=== PATIENT | female | born 1960 | race Caucasian/White ===

== ENCOUNTER 2019-05-15 21:31 | Emergency (ER) | payer OTHER ==
--- NOTE | 2019-05-15 21:40 | UC ---
"General HPI - HPI Summary HPI Summary: Patient presents to urgent care for evaluation of a wound on her right heel. Patient states that Monday evening she slipped and fell at home. Patient states she bruised her left hip and had some discomfort to her right heel. Patient states she has progressively developed a blister in this area and was concerned because it became red tonight. Patient has oxycodone that she takes at home for back pain and has been taking it. Patient denies striking her head loss of consciousness. Patient does have a history of diabetes type 2. Patient does not routinely check her sugars. Patient denies any knee pain or hip pain. Patient states she is limping because of pain in the right heel. Patient's medications as noted in the EMR by triage was reviewed. - History of Current Complaint Stated Complaint: S/P FALL, RIGHT FOOT COMPLAINT Hx Obtained From: Patient, Other: - I guilherme Garg | Reference #: [id number] Onset/Duration: Gradual Onset Onset Severity: Mild Current Severity: Mild - Allergy/Home Medications Allergies/Adverse Reactions: Allergies Allergy/AdvReac Type Severity Reaction Status Date / Time haloperidol [From Haldol] Allergy See Comment Verified 05/15/19 22:05 Home Medications: Home Medications Ascorbic Acid TAB* [Vitamin C TAB*] 500 mg PO DAILY 05/15/19 [History Confirmed 05/15/19] Docosanol 10%* [Abreva 10%*] 1 applic DAILY 05/15/19 [History Confirmed 05/15/19 ] Fenofibrate [Tricor 160 MG] 160 mg PO DAILY 05/15/19 [History Confirmed 05/15/19 ] Folic Acid TAB* [Folvite TAB*] 1 mg PO DAILY 05/15/19 [History Confirmed ] LORazepam TAB(*) [Ativan 0.5 MG TAB (*)] 0.5 mg PO QID PRN 05/15/19 [History Confirmed 05/15/19] Lactose-Reduced Food [Ensure Liquid] 1 liq PO DAILY 05/15/19 [History Confirmed 05/15/19] Metformin ER (NF) 500 mg PO BID 05/15/19 [History Confirmed 05/15/19] Pantoprazole TAB * [Protonix TAB*] 40 mg PO DAILY 05/15/19 [History Confirmed ] Proctosol 1 applic DAILY 05/15/19 [History Confirmed 05/15/19] QUEtiapine TAB* [Seroquel 300 MG TAB*] 2 tab PO BEDTIME 05/15/19 [History Confirmed 05/15/19] Ramipril CAP* [Altace CAP*] 2.5 mg PO DAILY 05/15/19 [History Confirmed 05/15/19 ] Simvastatin 20 mg PO DAILY 05/15/19 [History Confirmed 05/15/19] Zolpidem TAB* [Ambien TAB*] 5 mg PO BEDTIME PRN 05/15/19 [History Confirmed ] amLODIPine TAB* [Norvasc 5 mg TAB*] 1 tab DAILY 05/15/19 [History Confirmed ] buPROPion SR TAB* [Wellbutrin SR TAB*] 150 mg PO BID 05/15/19 [History Confirmed 05/15/19] hydrOXYzine HCL TAB* [Atarax TAB 50 MG *] 50 mg PO TID PRN 05/15/19 [History Confirmed 05/15/19] oxyCODONE TAB* [Roxycodone TAB 5 mg*] 5 mg PO Q4H PRN 05/15/19 [History Confirmed 05/15/19] traZODone TAB* [Desyrel TAB*] 2 tab PO BEDTIME 05/15/19 [History Confirmed 05/15] PMH/Surg Hx/FS Hx/Imm Hx Previously Healthy: Yes Endocrine History: Diabetes Cardiovascular History: Hypertension - Surgical History Surgical History: Yes Surgery Procedure, Year, and Place: TRACHeOTOMY AGE 24-THEN REMOVED. BILATERAL CATARACT - Family History Known Family History: Positive: Non-Contributory - Social History Occupation: Unemployed Lives: With Family Alcohol Use: Daily Substance Use Type: None Smoking Status (MU): Current Every Day Smoker Type: Cigarettes - 1++ rolls her own Review of Systems All Other Systems Reviewed And Are Negative: Yes Constitutional: Positive: Negative Skin: Positive: Other - blister right heel Physical Exam - Summary Physical Exam Summary: Vital Signs Reviewed: Yes A+Ox3, cachexia Eyes: Conjunctiva Clear, J CARLOS. EOM intact and full ENT: Hearing grossly normal TM x 2 clear, mmoist, uvula midline, no exudate, no erythema Neck: Positive: Supple Respiratory: Positive: No respiratory distress, No accessory muscle use + CTA throughout no w/r Cardiovascular: RRR nl s1, s2 no m/r CBT <2 sec abd soft + BS nt/nd no guarding, no distension Musculoskeletal Exam: slight limp, protecting right foot +SLE + flex/ext knee , ankle + great toe Neurological: Positive: Alert, + sensation throughout Psychological: Positive: Normal Response To examiner Skin: Positive: no rash, no ecchymosis, 2x3 cm blood blister right lateral heel with surrounding erythema mild TTP intact Triage Information Reviewed: Yes Diagnostics - Radiology No standard instances Radiology Interpretation Completed By: ED Physician - no fx, no fb Course/Dx - Course Course Of Treatment: Patient presents to urgent care for evaluation of injury to her right heel. Patient cannot follow Monday. Patient developed a blood blister on the right heel that has progressively become bigger surrounding erythema and causing her to limp. Patient with oxycodone today but no other analgesia. Patient is a diabetic. On exam vital signs are stable. Patient has a 2 x 3 cm intact blood blister on her right heel. Patient does have swelling erythema concerning for early cellulitis. Blister is intact. No check imaging and make sure that there is no foreign body or fracture. Anticipate a padded bandage with John wrap. We'll start patient on Keflex for infection. Crutches. Elevate. Strict return precautions. Patient states understanding and agreement with plan. Patient's aware that she will be preliminary will be reread by radiologist the morning. - Diagnoses Provider Diagnosis: Blister, Cellulitis of foot, right Discharge ED - Sign-Out/Discharge Documenting (check all that apply): Patient Departure All imaging exams completed and their final reports reviewed: No - Discharge Plan Condition: Stable Disposition: HOME Prescriptions: Cephalexin CAP* [Keflex 500 CAP*] 500 mg PO TID #21 cap Patient Education Materials: Cellulitis (ED), Foot Contusion (ED), Blister (ED) Referrals: Aurea Crisostomo NP [Primary Care Provider] - Additional Instructions: - cover wound with padded bandage and john wrap for comfort and protection -Elevate your leg - this will help with swelling and pain - Alternate ibuprofen (advil, Motrin) 600mg and tylenol every 3 hours for pain. Take with food. Do NOT take for more than 4-5 days, Okay to take your pain medications as prescribed by your primary doctor - Take antibiotics as prescribed until gone - Monitor your wound for increased reddness. If you develop increased pain, fever, red streaking, odor or any other concerns it is recommended you go to the emergency department for further evaluation and treatment -Contact your doctor to arrange a follow-up appointment next week. Contact your doctor or return with questions or concerns As discussed, your radiograph was reviewed by the provider that treated you tonight. It will be read by a radiologist tomorrow morning. If there is a finding other than that discussed with you today, you will receive a call from a care provider. - Billing Disposition and Condition Condition: STABLE Disposition: Home"
[2019-05-15 21:47] VITALS: BP 131/79
[2019-05-15] MEDS ORDERED: Cephalexin CAP* 500 MG PO ONE (21:59)
--- NOTE | 2019-05-16 09:08 | UC ---
- Progress Note Progress Note: Patient Name: SAMIRA TABARES Medical Record#: [id number] Ordering Physician: Syeda Garg MD Acct.#: [id number] : 1960 Age: 58 Sex: F Location: [facility] Exam Date: 05/15/192154 ADM Status: [facility] ER Order Information: ANKLE RIGHT 3+VWS Accession Number: [id number] CPT: 02810 Indication: Right ankle pain. 3 views of the right ankle demonstrate soft tissue swelling over the calcaneus. A linear lucency is noted on the posterior ankle fracture is not excluded. Further evaluation with CT and clinical correlation is suggested. Soft tissue swelling is noted over the lateral calcaneus. IMPRESSION: Soft tissue swelling lateral heel. I cannot totally exclude a fracture of the calcaneus that is not displaced and clinical correlation is suggested. R2 Preliminary Imaging Read R2 <Electronically signed by Gina Cat MD in OV> 05/16/19753 Dictated By: Gina Cat MD Dictated Date/Time: 05/16/19752 Transcribed Date/Time: 05/16/19752 Copy to: CC:Syeda Garg MD; Aurea Crisostomo NP Imaging - [facility] [address] [address] ph ([phone]) ph ([phone]) ph ([phone]) This report is only to be considered final once signed by the Provider(s) as displayed in the "<Electronically Signed by >" field (s). Absence of a signature indicates the report is in a draft status and still needs to be finalized. In the event this document was created by someone other than the signing Provider, the individual initiating the document will be listed in the "Entered by:" or "Dictated by:" vidal. 1 of 1 Very little suspicion for fracture given history and exam by me please call pt - let her know should use crutches at ALL times until see in follow-up Provide ortho follow-up # Spoke to nurse: [place] - will contact patient Course/Dx - Diagnoses Provider Diagnoses: Blister, Cellulitis of foot, right Discharge ED - Sign-Out/Discharge Documenting (check all that apply): Post-Discharge Follow Up All imaging exams completed and their final reports reviewed: Yes - Discharge Plan Condition: Stable Disposition: HOME Prescriptions: Cephalexin CAP* [Keflex 500 CAP*] 500 mg PO TID #21 cap Patient Education Materials: Cellulitis (ED), Foot Contusion (ED), Blister (ED) Referrals: Aurea Crisostomo NP [Primary Care Provider] - Additional Instructions: - cover wound with padded bandage and luis angel wrap for comfort and protection -Elevate your leg - this will help with swelling and pain - Alternate ibuprofen (advil, Motrin) 600mg and tylenol every 3 hours for pain. Take with food. Do NOT take for more than 4-5 days, Okay to take your pain medications as prescribed by your primary doctor - Take antibiotics as prescribed until gone - Monitor your wound for increased reddness. If you develop increased pain, fever, red streaking, odor or any other concerns it is recommended you go to the emergency department for further evaluation and treatment -Contact your doctor to arrange a follow-up appointment next week. Contact your doctor or return with questions or concerns As discussed, your radiograph was reviewed by the provider that treated you tonight. It will be read by a radiologist tomorrow morning. If there is a finding other than that discussed with you today, you will receive a call from a care provider. - Billing Disposition and Condition Condition: STABLE Disposition: Home
== END 2019-05-15 22:17 | disposition home or self-care (01) ==
LOC: UCCORT 21:31
DX: L03.115 Cellulitis of right lower limb (principal); S90.821A Blister (nonthermal), right foot, initial encounter; M79.89 Other specified soft tissue disorders; E11.9 Type 2 diabetes mellitus without complications; I10 Essential (primary) hypertension; F17.210 Nicotine dependence, cigarettes, uncomplicated; Z79.84 Long term (current) use of oral hypoglycemic drugs; Z88.8 Allergy status to other drugs, medicaments and biological substances; Z79.899 Other long term (current) drug therapy; X58.XXXA Exposure to other specified factors, initial encounter; Y92.9 Unspecified place or not applicable
CPT/HCPCS: 99213; A9270-GY; G0463

== ENCOUNTER 2019-05-20 19:41 | Emergency (ER) | payer OTHER ==
[2019-05-20 19:58] VITALS: BP 139/74
[2019-05-20] MEDS ORDERED: Cephalexin CAP* 500 MG PO ONE ×2 (20:12→20:13)
--- NOTE | 2019-05-20 20:14 | UC ---
Skin Complaint HPI - HPI Summary HPI Summary: 58-year-old female comes in with a chief complaint of a right foot blister. Patient was seen here on May 15, 2019. The right heel blister with erythema around it and was treated for cellulitis with Keflex 500 mg by mouth 3 times a day for 7 days. Patient lost the Keflex after taking about 3 doses. She has been protecting it with a covering dressing and minimizing weightbearing. She comes in tonight with concern that the infection is spreading. No fevers no chills feels well otherwise. The blister is not broken. - History of Current Complaint Chief Complaint: UCSkin Time Seen by Provider: 05/20/19 19:56 Stated Complaint: RIGHT FOOT INJURY-FOLLOW UP Pain Intensity: 7 - Allergy/Home Medications Allergies/Adverse Reactions: Allergies Allergy/AdvReac Type Severity Reaction Status Date / Time haloperidol [From Haldol] Allergy See Comment Verified 05/20/19 19:58 PMH/Surg Hx/FS Hx/Imm Hx Previously Healthy: Yes Endocrine History: Diabetes, Dyslipidemia Cardiovascular History: Hypertension GI/ History: Gastroesophageal Reflux - Surgical History Surgical History: Yes Surgery Procedure, Year, and Place: TRACHeOTOMY AGE 24-THEN REMOVED. BILATERAL CATARACT - Family History Known Family History: Positive: Non-Contributory - Social History Alcohol Use: Rare Substance Use Type: None Smoking Status (MU): Current Every Day Smoker Type: Cigarettes Amount Used/How Often: not sure--rolls own Length of Time of Smoking/Using Tobacco: 45 yr Review of Systems All Other Systems Reviewed And Are Negative: Yes Constitutional: Positive: Negative Skin: Positive: Other - SEE HPI Eyes: Positive: Negative ENT: Positive: Negative Respiratory: Positive: Negative Cardiovascular: Positive: Negative Gastrointestinal: Positive: Negative Motor: Positive: Negative Neurovascular: Positive: Negative Musculoskeletal: Positive: Negative Neurological: Positive: Negative Psychological: Positive: Negative Is Patient Immunocompromised?: No Physical Exam Triage Information Reviewed: Yes Appearance: Well-Appearing, No Pain Distress, Well-Nourished Vital Signs: Initial Vital Signs Temp 99.5 F 05/20/19 19:51 Pulse 104 05/20/19 19:51 Resp 18 05/20/19 19:51 BP 139/74 05/20/19 19:51 Pulse Ox 98 05/20/19 19:51 Vital Signs Reviewed: Yes Eye Exam: Normal Eyes: Positive: Conjunctiva Clear Neck: Positive: Supple Respiratory: Positive: No respiratory distress Musculoskeletal: Positive: Strength Intact, ROM Intact Neurological: Positive: Alert, Muscle Tone Normal Psychological: Positive: Age Appropriate Behavior Skin: Positive: Other - Right heel lateral aspect there is a 2.5 cm blister with some light red contents that is not broken. There is some erythema on the superior portion about 1.5 x 1 cm. No streaking. There is a marker outline where the infection was in the past and the erythema is gone from that area. Course/Dx - Course Course Of Treatment: It appears that the area of cellulitis is much smaller now. Will continue the treatment of resting and protecting it and Keflex. Follow-up with primary care provider. I let the patient know that if the infection spread up she felt ill she needed to the emergency department potentially for IV antibiotic treatment. - Diagnoses Provider Diagnosis: Blister of foot, right, infected Discharge ED - Sign-Out/Discharge Documenting (check all that apply): Patient Departure All imaging exams completed and their final reports reviewed: No Studies - Discharge Plan Condition: Stable Disposition: HOME Prescriptions: Cephalexin CAP* [Keflex CAP*] 500 mg PO TID #19 cap Patient Education Materials: Cellulitis (ED), Blister (ED) Referrals: Aurea Crisostomo NP [Primary Care Provider] - Additional Instructions: FOLLOW UP WITH YOUR DOCTOR IF NOT COMPLETELY IMPROVED. GO TO THE EMERGENCY DEPARTMENT WORSE; SPREAD OF INFECTION, YOU FEEL ILL OR ANY QUESTIONS OR CONCERNS. - Billing Disposition and Condition Condition: STABLE Disposition: Home
== END 2019-05-20 20:30 | disposition home or self-care (01) ==
LOC: UCCORT 19:41
DX: S90.821A Blister (nonthermal), right foot, initial encounter (principal); L08.9 Local infection of the skin and subcutaneous tissue, unspecified; E11.9 Type 2 diabetes mellitus without complications; I10 Essential (primary) hypertension; F17.210 Nicotine dependence, cigarettes, uncomplicated; Z88.8 Allergy status to other drugs, medicaments and biological substances; X58.XXXA Exposure to other specified factors, initial encounter; Y92.9 Unspecified place or not applicable
CPT/HCPCS: 99212; A9270-GY; G0463